=== PATIENT | male | born 1965 | race Caucasian/White ===

== ENCOUNTER → 2018-04-11 | Outpatient (REF) | payer OTHER | LOC: M SFHCLERA 19:06 | DX: R53.81 Other malaise (principal) ==

== ENCOUNTER → 2019-10-07 | Outpatient (CLI) | payer OTHER ==
--- NOTE | 2019-10-07 15:35 | REP ---
REASON FOR EXAM: Wheezing. COMPARISON: Multiple, the latest 04/29/2014. TWO-VIEW CHEST: FINDINGS: The superior mediastinal structures are midline. The cardiac silhouette is unremarkable in size, shape, and position. The diaphragmatic surfaces of the lungs are regular, and the costophrenic angles are clear. The pulmonary serna are clear. The imaged osseous structures are intact. IMPRESSION: There is no acute cardiopulmonary disease. No change from the prior exam. Electronically Signed by Agustín Zuniga DO 10/07/2019 04:02 P
== END ==
LOC: M LRY 09:56
PROVIDERS: ATTEND Nurse Practitioner Family
DX: R06.2 Wheezing (principal)

== ENCOUNTER → 2020-01-09 | Outpatient (REF) | payer OTHER | LOC: M SFHCLERA 10:09 | PROVIDERS: ATTEND Physician Assistant | DX: K52.9 Noninfective gastroenteritis and colitis, unspecified (principal) ==